=== PATIENT | female | born 1935 | race Two or more races ===

== ENCOUNTER 2021-05-18 12:20 | Emergency (ER) | payer OTHER ==
[~2021-05-18] VITALS: Ht 203.2 cm; Wt 61.2 kg
[2021-05-18] MEDS ORDERED: WARFARIN SODIUM4 MG PO (12:55)
[2021-05-18] MEDS ORDERED: NORVASC10 MG (12:56)
== END 2021-05-18 17:36 | disposition home or self-care (01) ==
LOC: ER 12:20
DX: S70.02XA Contusion of left hip, initial encounter (principal); S70.01XA Contusion of right hip, initial encounter; W22.8XXA Striking against or struck by other objects, initial encounter; Y93.89 Activity, other specified; Y92.098 Other place in other non-institutional residence as the place of occurrence of the external cause; Y99.8 Other external cause status